=== PATIENT | female | born 1940 | race Caucasian/White ===

== ENCOUNTER 2018-02-10 10:34 | Emergency (ER) | payer MEDICARE, BC ==
[~2018-02-10] VITALS: Ht 157.5 cm; Wt 61.0 kg
[2018-02-10] MEDS ORDERED: HYDROcodone/acetaminophen 10/325mg tab PO ONE (10:45)
[2018-02-10] MEDS ORDERED: TETanus/Pertussis (Acell)/Diphther VAC/PF (Tdap-Adult) 0.5ml syringe IM ONE (10:45)
[2018-02-10] MEDS ORDERED: LIDOcaine 1% 30ml preserv. free vial IJ ONE (10:45)
[2018-02-10] MEDS ORDERED: HYDR-4353 PO (12:22)
[2018-02-10] MEDS ORDERED: CEPH-572 PO (12:22)
[2018-02-10 12:30] VITALS: BP 151/47
== END 2018-02-10 12:32 | disposition home or self-care (01) ==
LOC: ER 10:34
DX: S61.211A Laceration without foreign body of left index finger without damage to nail, initial encounter (principal); I10 Essential (primary) hypertension; Z88.7 Allergy status to serum and vaccine; W23.0XXA Caught, crushed, jammed, or pinched between moving objects, initial encounter; Y93.89 Activity, other specified; Y92.89 Other specified places as the place of occurrence of the external cause; Y99.9 Unspecified external cause status
CPT/HCPCS: 12004; 73140; 90715; 99284; J3490